=== PATIENT | male | born 1975 | race Caucasian/White ===

== ENCOUNTER 2018-08-15 15:08 | Emergency (ER) | payer BC ==
[2018-08-15] MEDS ORDERED: Sodium Chloride 0.9% 10 ML Syringe FLUSH PRN (15:25)
[2018-08-15] MEDS ORDERED: Albuterol/Ipratropium 3.0-0.5 MG/3 ML Neb Soln NEB ONE (15:26)
[2018-08-15] MEDS ORDERED: LORazepam 2 MG/ML SDV IVPUSH ONE (16:17)
--- NOTE | 2018-08-15 17:31 | EDM.PDOC ---
ED HPI GENERAL MEDICAL PROBLEM - General Chief Complaint: Chest Pain Stated Complaint: CHEST TIGHTNESS Time Seen by Provider: 08/15/18 15:16 Source of Information: Reports: Patient History Limitations: Reports: No Limitations - History of Present Illness INITIAL COMMENTS - FREE TEXT/NARRATIVE: The patient presents with chest tightness and shortness of breath. He noticed this today when he was at work. He went home and tried to lay down but that did not help. It feels like his throat is closing. He has no sore throat. He has no fever, chills, cough, abdominal, nausea and vomiting. He has no history of heart disease, diabetes or hypertension. He does have a history of anxiety and he weaned himself off of the medication. He does feel anxious now. Onset: Gradual Duration: Hour(s): Location: Reports: Chest Quality: Reports: Other (Tightness) Severity: Moderate Improves with: Reports: None Worsens with: Reports: None Associated Symptoms: Reports: Chest Pain, Shortness of Breath. Denies: Cough, Fever/Chills, Headaches, Nausea/Vomiting Chest Pain Score (Numeric/FACES): 7 - Related Data Allergies Allergy/AdvReac Type Severity Reaction Status Date / Time No Known Allergies Allergy Verified 08/15/18 15:20 Home Meds: Home Meds LORazepam [Ativan] 0.5 mg PO Q8H PRN #20 tab 08/15/18 [Rx] Past Medical History - Past Health History Medical/Surgical History: Denies Medical/Surgical History Psychiatric History: Reports: Anxiety, Depression Social & Family History - Family History Family Medical History: Noncontributory - Tobacco Use Smoking Status *Q: Current Every Day Smoker Years of Tobacco use: 15 Packs/Tins Daily: 0.2 - Caffeine Use Caffeine Use: Reports: Energy Drinks Other Caffeine Use: 1/day - Recreational Drug Use Recreational Drug Use: No ED ROS GENERAL - Review of Systems Review Of Systems: See Below Constitutional: Reports: No Symptoms HEENT: Reports: No Symptoms Respiratory: Reports: Shortness of Breath Cardiovascular: Reports: Chest Pain Endocrine: Reports: No Symptoms GI/Abdominal: Reports: No Symptoms : Reports: No Symptoms Musculoskeletal: Reports: No Symptoms ED EXAM, GENERAL - Physical Exam Exam: See Below Exam Limited By: No Limitations General Appearance: Alert, No Apparent Distress Ears: Normal External Exam Nose: Normal Inspection Throat/Mouth: Other (Mild erythema of the oropharynx) Head: Atraumatic, Normocephalic Neck: Normal Inspection Respiratory/Chest: No Respiratory Distress, Decreased Breath Sounds (Mild) Cardiovascular: Regular Rate, Rhythm, No Edema, No Murmur GI/Abdominal: Soft, Non-Tender, No Organomegaly, No Mass Back Exam: Normal Inspection Extremities: Normal Inspection Neurological: Alert, Oriented, No Motor/Sensory Deficits EKG INTERPRETATION EKG Date: 08/15/18 Time: 15:14 Rhythm: Other (Sinus tachycardia) Rate (Beats/Min): 100 [place]: Normal P-Wave: Present QRS: Normal ST-T: Elevated (Normal early repol) QT: Normal Course - Vital Signs Last Recorded V/S: Last Vital Signs Temp 98.2 F 08/15/18 15:16 Pulse 105 H 08/15/18 15:16 Resp 20 08/15/18 15:16 BP 190/116 H 08/15/18 15:16 Pulse Ox 99 08/15/18 15:33 - Orders/Labs/Meds Orders: Active Orders 24 hr Category Date Time Status Cardiac Monitoring [RC] . DIRECTED Care 08/15/18 15:25 Active EKG Documentation Completion [RC] STAT Care 08/15/18 15:26 Active Peripheral IV Care [RC] . DIRECTED Care 08/15/18 15:26 Active RT Aerosol Therapy [RC] ASDIRECTED Care 08/15/18 15:27 Active Chest 1V Frontal [CR] Stat Exams 08/15/18 15:26 Taken Sodium Chloride 0.9% [Saline Flush] Med 08/15/18 15:25 Active 10 ml FLUSH ASDIRECTED PRN Peripheral IV Insertion Adult [OM.PC] Stat Oth 08/15/18 15:25 Ordered Medication Orders Sodium Chloride (Saline Flush) 10 ml FLUSH ASDIRECTED PRN PRN Reason: Keep Vein Open Last Admin: 08/15/18 15:35 Dose: 10 ml Labs: Laboratory Tests 08/15/18 08/15/18 08/15/18 Range/Units 15:22 15:22 15:22 WBC 18.46 H (4.23-9.07) K/mm3 RBC 5.04 (4.63-6.08) M/mm3 Hgb 15.7 (13.7-17.5) gm/L Hct 47.1 (40.1-51.0) % MCV 93.5 H (79.0-92.2) fl MCH 31.2 (25.7-32.2) pg MCHC 33.3 (32.2-35.5) g/dl RDW Std Deviation 50.2 H (35.1-43.9) fL Plt Count 450 H (163-337) K/mm3 MPV 8.9 L (9.4-12.3) fl Neut % (Auto) 82.7 H (34.0-67.9) % Lymph % (Auto) 10.2 L (21.8-53.1) % [place] % (Auto) 6.0 (5.3-12.2) % Eos % (Auto) 0.4 L (0.8-7.0) Baso % (Auto) 0.3 (0.1-1.2) % Neut # (Auto) 15.29 H (1.78-5.38) K/mm3 Lymph # (Auto) 1.88 (1.32-3.57) K/mm3 [place] # (Auto) 1.10 H (0.30-0.82) K/mm3 Eos # (Auto) 0.07 (0.04-0.54) K/mm3 Baso # (Auto) 0.05 (0.01-0.08) K/mm3 Sodium 135 L (136-145) mEq/L Potassium 3.4 L (3.5-5.1) mEq/L Chloride 101 (98-107) mEq/L Carbon Dioxide 25 (21-32) mEq/L Anion Gap 12.4 (5-15) BUN 9 (7-18) mg/dL Creatinine 1.1 (0.7-1.3) mg/dL Est Cr Clr Drug Dosing 94.13 mL/min Estimated GFR (MDRD) > 60 (>60) mL/min BUN/Creatinine Ratio 8.2 L (14-18) Glucose 103 (74-106) mg/dL Calcium 8.7 (8.5-10.1) mg/dL Total Bilirubin 0.4 (0.2-1.0) mg/dL AST 24 (15-37) U/L ALT 26 (16-63) U/L Alkaline Phosphatase 107 (46-116) U/L Troponin I < 0.017 (0.00-0.056) ng/mL Total Protein 7.3 (6.4-8.2) g/dl Albumin 3.5 (3.4-5.0) g/dl Globulin 3.8 gm/dL Albumin/Globulin Ratio 0.9 L (1-2) Ethyl Alcohol 0.00 (0.00) gm% Meds: Medications Generic Name Dose Route Start Last Admin Trade Name Freq PRN Reason Stop Dose Admin Sodium Chloride 10 ml 08/15/18 15:25 08/15/18 15:35 Saline Flush FLUSH 10 ml ASDIRECTED PRN Administration Keep Vein Open Discontinued Medications Generic Name Dose Route Start Last Admin Trade Name Freq PRN Reason Stop Dose Admin Albuterol/Ipratropium 3 ml 08/15/18 15:26 08/15/18 15:33 Duoneb 3.0-0.5 Mg/3 Ml NEB 08/15/18 15:27 3 ml ONETIME ONE Administration Lorazepam 1 mg 08/15/18 16:17 08/15/18 16:22 Ativan IVPUSH 08/15/18 16:18 1 mg ONETIME ONE Administration - Re-Assessments/Exams Free Text/Narrative Re-Assessment/Exam: 08/15/18 17:31 I ordered an IV saline lock, EKG, labs, CXR and a throat culture. His EKG shows a sinus tachycardia. His CXR looks good. His WBC is elevated at 18.46. His CMP is normal. His troponin was negative. He had more anxiety and he felt like his throat was closing. I ordered ativan and he feels much better. I will discharge him home. Departure - Departure Time of Disposition: 17:35 Disposition: Home, Self-Care 01 Condition: Good Clinical Impression: Atypical chest pain, Anxiety Prescriptions: LORazepam [Ativan] 0.5 mg PO Q8H PRN #20 tab PRN Reason: Anxiety Referrals: PCP,None [Primary Care Provider] - Cristiano Molina PA-C [Physician [facility] [employer]] - 1 Week Additional Instructions: Take the ativan as needed for anxiety. Please return if you are worse. - My Orders Last 24 Hours: My Active Orders 08/15/18 15:25 Cardiac Monitoring [RC] . DIRECTED Sodium Chloride 0.9% [Saline Flush] 10 ml FLUSH ASDIRECTED PRN Peripheral IV Insertion Adult [OM.PC] Stat 08/15/18 15:26 EKG Documentation Completion [RC] STAT Peripheral IV Care [RC] . DIRECTED Chest 1V Frontal [CR] Stat 08/15/18 15:27 RT Aerosol Therapy [RC] ASDIRECTED - Assessment/Plan Last 24 Hours: My Active Orders 08/15/18 15:25 Cardiac Monitoring [RC] . DIRECTED Sodium Chloride 0.9% [Saline Flush] 10 ml FLUSH ASDIRECTED PRN Peripheral IV Insertion Adult [OM.PC] Stat 08/15/18 15:26 EKG Documentation Completion [RC] STAT Peripheral IV Care [RC] . DIRECTED Chest 1V Frontal [CR] Stat 08/15/18 15:27 RT Aerosol Therapy [RC] ASDIRECTED
--- NOTE | 2018-08-17 07:14 | CR ---
Chest: Portable view of the chest was obtained. Comparison: No prior chest x-ray. Heart size and mediastinum are normal. Lungs are clear. Bony structures are unremarkable. Impression: 1. Nothing acute is seen on portable chest x-ray. Diagnostic code #1
== END 2018-08-15 18:00 | disposition home or self-care (01) ==
LOC: JD.ED 15:08
DX: F41.9 Anxiety disorder, unspecified (principal); F32.9 Major depressive disorder, single episode, unspecified; F17.210 Nicotine dependence, cigarettes, uncomplicated
CPT/HCPCS: 36415; 71045; 80053; 84484; 85025; 93005; 94640; 96374; 99285; G0480; J2060; J7050; J7620-GY

== ENCOUNTER 2019-01-20 18:25 | Emergency (ER) | payer BC ==
[2019-01-20] MEDS ORDERED: Labetalol 100 MG/20 ML MDV IVPUSH ONE ×2 (19:08→20:47)
[2019-01-20] MEDS ORDERED: Sodium Chloride 0.9% 10 ML Syringe FLUSH PRN (19:09)
[2019-01-20] MEDS ORDERED: Lisinopril 10 MG Tab PO ONE (20:48)
--- NOTE | 2019-01-20 21:22 | EDM.PDOC ---
ED HPI GENERAL MEDICAL PROBLEM - General Chief Complaint: Chest Pain Stated Complaint: CHEST TIGHTNESS Time Seen by Provider: 01/20/19 18:57 Source of Information: Reports: Patient, RN Notes Reviewed - History of Present Illness INITIAL COMMENTS - FREE TEXT/NARRATIVE: 43-year-old male comes in with sensation of pounding type palpitations. States he also has mild nonspecific dizziness. States he is under a lot of stress right now, having severe arguments with his girlfriend. States he has a "funny taste" in his mouth. Is concerned that maybe she put something in his food. History of borderline hypertension. He does not currently take any medication for that or for anything else. No shortness of breath or trouble breathing. No abdominal pain nausea or vomiting. - Related Data Allergies Allergy/AdvReac Type Severity Reaction Status Date / Time No Known Allergies Allergy Verified 01/20/19 18:35 Home Meds: Home Meds Esomeprazole Magnesium [Nexium 24Hr] 20 mg PO ASDIRECTED PRN 01/20/19 [History] Lisinopril 10 mg PO DAILY #30 tablet 01/20/19 [Rx] Past Medical History - Past Health History Medical/Surgical History: Denies Medical/Surgical History HEENT History: Reports: Impaired Vision Other HEENT History: wears contacts. Cardiovascular History: Reports: Hypertension, Other (See Below) Other Cardiovascular History: takes no meds. Gastrointestinal History: Reports: GERD, PUD Psychiatric History: Reports: Anxiety, Depression Dermatologic History: Reports: Other (See Below) Other Dermatologic History: undiagnosed chronic rash to back. - Past Surgical History HEENT Surgical History: Reports: Other (See Below) Other HEENT Surgeries/Procedures: wisdom teeth removed. GI Surgical History: Reports: Colonoscopy, EGD Social & Family History - Family History Family Medical History: Noncontributory - Tobacco Use Smoking Status *Q: Current Every Day Smoker Years of Tobacco use: 10 Packs/Tins Daily: 0.5 Second Hand Smoke Exposure: Yes - Caffeine Use Caffeine Use: Reports: Energy Drinks Other Caffeine Use: 1/day - Alcohol Use Days Per Week of Alcohol Use: 4 Number of Drinks Per Day: 8 Total Drinks Per Week: 32 - Recreational Drug Use Recreational Drug Use: No ED ROS GENERAL - Review of Systems Review Of Systems: See Below Constitutional: Denies: Fever, Chills, Diaphoresis HEENT: Denies: Sinus Problem, Throat Pain Respiratory: Denies: Shortness of Breath, Pleuritic Chest Pain Cardiovascular: Reports: Palpitations. Denies: Chest Pain GI/Abdominal: Denies: Abdominal Pain, Nausea, Vomiting Musculoskeletal: Denies: Shoulder Pain, Arm Pain, Back Pain Skin: Reports: No Symptoms Neurological: Reports: Dizziness. Denies: Headache, Numbness, Tingling, Trouble Speaking, Difficulty Walking, Weakness ED EXAM, GENERAL - Physical Exam Exam: See Below General Appearance: Alert, Anxious Eye Exam: Bilateral Eye: PERRL Throat/Mouth: Normal Inspection, Normal Oropharynx Head: Atraumatic. No: Facial Swelling Neck: Supple, Full Range of Motion Respiratory/Chest: No Respiratory Distress, Lungs Clear, Normal Breath Sounds Cardiovascular: Regular Rate, Rhythm GI/Abdominal: Soft, Non-Tender. No: Guarding Back Exam: No: CVA Tenderness (L), CVA Tenderness (R) Extremities: Normal Inspection, No Pedal Edema Neurological: Alert, Oriented, No Motor/Sensory Deficits Skin Exam: Warm, Dry, Normal Color, No Rash EKG INTERPRETATION EKG Date: 01/20/19 Rhythm: NSR [place]: Normal P-Wave: Present QRS: Normal ST-T: Other (Anterior ST elevation, probably due to LVH) Course - Vital Signs Last Recorded V/S: Last Vital Signs Temp 98.7 F 01/20/19 18:30 Pulse 94 01/20/19 18:30 Resp 16 01/20/19 18:30 BP 150/97 H 01/20/19 21:03 Pulse Ox 96 01/20/19 18:30 - Orders/Labs/Meds Orders: Active Orders 24 hr Category Date Time Status EKG 12 Lead [EKG Documentation Completion] [RC] STAT Care 01/20/19 19:07 Active Peripheral IV Care [RC] . DIRECTED Care 01/20/19 19:09 Active Chest 1V Frontal [CR] Stat Exams 01/20/19 19:07 Taken Peripheral IV Insertion Adult [OM.PC] Stat Oth 01/20/19 19:08 Ordered Labs: Laboratory Tests 01/20/19 01/20/19 01/20/19 Range/Units 18:55 18:55 19:09 WBC 11.85 H (4.23-9.07) K/mm3 RBC 5.05 (4.63-6.08) M/mm3 Hgb 15.6 (13.7-17.5) gm/L Hct 47.2 (40.1-51.0) % MCV 93.5 H (79.0-92.2) fl MCH 30.9 (25.7-32.2) pg MCHC 33.1 (32.2-35.5) g/dl RDW Std Deviation 47.7 H (35.1-43.9) fL Plt Count 486 H (163-337) K/mm3 MPV 8.5 L (9.4-12.3) fl Neut % (Auto) 66.0 (34.0-67.9) % Lymph % (Auto) 23.5 (21.8-53.1) % [place] % (Auto) 8.3 (5.3-12.2) % Eos % (Auto) 1.2 (0.8-7.0) Baso % (Auto) 0.7 (0.1-1.2) % Neut # (Auto) 7.82 H (1.78-5.38) K/mm3 Lymph # (Auto) 2.79 (1.32-3.57) K/mm3 [place] # (Auto) 0.98 H (0.30-0.82) K/mm3 Eos # (Auto) 0.14 (0.04-0.54) K/mm3 Baso # (Auto) 0.08 (0.01-0.08) K/mm3 Sodium 140 (136-145) mEq/L Potassium 3.5 (3.5-5.1) mEq/L Chloride 105 (98-107) mEq/L Carbon Dioxide 27 (21-32) mEq/L Anion Gap 11.5 (5-15) BUN 12 (7-18) mg/dL Creatinine 1.1 (0.7-1.3) mg/dL Est Cr Clr Drug Dosing 93.17 mL/min Estimated GFR (MDRD) > 60 (>60) mL/min BUN/Creatinine Ratio 10.9 L (14-18) Glucose 105 (74-106) mg/dL Calcium 9.1 (8.5-10.1) mg/dL Total Bilirubin 0.2 (0.2-1.0) mg/dL AST 18 (15-37) U/L ALT 27 (16-63) U/L Alkaline Phosphatase 88 (46-116) U/L Troponin I < 0.017 (0.00-0.056) ng/mL Total Protein 7.4 (6.4-8.2) g/dl Albumin 3.5 (3.4-5.0) g/dl Globulin 3.9 gm/dL Albumin/Globulin Ratio 0.9 L (1-2) Urine Color Yellow (Yellow) Urine Appearance Slt cloudy H (Clear) Urine pH 7.0 (5.0-8.0) Ur Specific [place] 1.025 (1.005-1.030) Urine Protein 1+ H (Negative) Urine Glucose (UA) Negative (Negative) Urine Ketones 2+ H (Negative) Urine Occult Blood Negative (Negative) Urine Nitrite Negative (Negative) Urine Bilirubin 1+ H (Negative) Urine Urobilinogen 2.0 H (0.2-1.0) Ur Leukocyte Esterase Negative (Negative) Urine RBC 0-5 (0-5) /hpf Urine WBC 0-5 (0-5) /hpf Ur Epithelial Cells 0-5 (0-5) /hpf Urine Bacteria Moderate H (FEW) /hpf Urine Mucus Many H (FEW) /hpf Urine Opiates Screen (TNYAKS=982) Ur Buprenorphine Scrn (CUTOFF=10) Ur Oxycodone Screen (FRT7CU=984) Urine Methadone Screen (KKX1PH=805) Ur Propoxyphene Screen (YVMNWO=315) Ur Barbiturates Screen (HKXBHT=604) Ur Tricyclics Screen (ZGKSKO=685) Ur Phencyclidine Scrn (CUTOFF=25) Ur Amphetamine Screen (IILBGD=361) U Methamphetamines Scrn (XLQYJY=206) U Benzodiazepines Scrn (WULFRG=442) U Cocaine Metab Screen (JXWTLM=748) U Marijuana (THC) Screen (CUTOFF=50) 01/20/19 Range/Units 19:09 WBC (4.23-9.07) K/mm3 RBC (4.63-6.08) M/mm3 Hgb (13.7-17.5) gm/L Hct (40.1-51.0) % MCV (79.0-92.2) fl MCH (25.7-32.2) pg MCHC (32.2-35.5) g/dl RDW Std Deviation (35.1-43.9) fL Plt Count (163-337) K/mm3 MPV (9.4-12.3) fl Neut % (Auto) (34.0-67.9) % Lymph % (Auto) (21.8-53.1) % [place] % (Auto) (5.3-12.2) % Eos % (Auto) (0.8-7.0) Baso % (Auto) (0.1-1.2) % Neut # (Auto) (1.78-5.38) K/mm3 Lymph # (Auto) (1.32-3.57) K/mm3 [place] # (Auto) (0.30-0.82) K/mm3 Eos # (Auto) (0.04-0.54) K/mm3 Baso # (Auto) (0.01-0.08) K/mm3 Sodium (136-145) mEq/L Potassium (3.5-5.1) mEq/L Chloride (98-107) mEq/L Carbon Dioxide (21-32) mEq/L Anion Gap (5-15) BUN (7-18) mg/dL Creatinine (0.7-1.3) mg/dL Est Cr Clr Drug Dosing mL/min Estimated GFR (MDRD) (>60) mL/min BUN/Creatinine Ratio (14-18) Glucose (74-106) mg/dL Calcium (8.5-10.1) mg/dL Total Bilirubin (0.2-1.0) mg/dL AST (15-37) U/L ALT (16-63) U/L Alkaline Phosphatase (46-116) U/L Troponin I (0.00-0.056) ng/mL Total Protein (6.4-8.2) g/dl Albumin (3.4-5.0) g/dl Globulin gm/dL Albumin/Globulin Ratio (1-2) Urine Color (Yellow) Urine Appearance (Clear) Urine pH (5.0-8.0) Ur Specific [place] (1.005-1.030) Urine Protein (Negative) Urine Glucose (UA) (Negative) Urine Ketones (Negative) Urine Occult Blood (Negative) Urine Nitrite (Negative) Urine Bilirubin (Negative) Urine Urobilinogen (0.2-1.0) Ur Leukocyte Esterase (Negative) Urine RBC (0-5) /hpf Urine WBC (0-5) /hpf Ur Epithelial Cells (0-5) /hpf Urine Bacteria (FEW) /hpf Urine Mucus (FEW) /hpf Urine Opiates Screen Negative (UUNVNH=815) Ur Buprenorphine Scrn Negative (CUTOFF=10) Ur Oxycodone Screen Negative (BFO7DT=638) Urine Methadone Screen Negative (RCE0CG=006) Ur Propoxyphene Screen Negative (XYZEEZ=775) Ur Barbiturates Screen Negative (DMDIYX=713) Ur Tricyclics Screen Negative (NDFUIX=867) Ur Phencyclidine Scrn Negative (CUTOFF=25) Ur Amphetamine Screen Negative (GVWEEJ=928) U Methamphetamines Scrn Negative (WTYNFH=866) U Benzodiazepines Scrn Negative (HIZEAJ=978) U Cocaine Metab Screen Negative (JFYRME=462) U Marijuana (THC) Screen Negative (CUTOFF=50) Meds: Medications Discontinued Medications Generic Name Dose Route Start Last Admin Trade Name Freq PRN Reason Stop Dose Admin Labetalol HCl 20 mg 01/20/19 19:08 01/20/19 19:20 Normodyne IVPUSH 01/20/19 19:09 20 mg ONETIME ONE Administration Protocol Labetalol HCl 20 mg 01/20/19 20:47 01/20/19 20:56 Normodyne IVPUSH 01/20/19 20:48 20 mg ONETIME ONE Administration Protocol Lisinopril 10 mg 01/20/19 20:48 01/20/19 21:03 Prinivil PO 01/20/19 20:49 10 mg ONETIME ONE Administration Sodium Chloride 10 ml 01/20/19 19:09 01/20/19 19:20 Saline Flush FLUSH 10 ml ASDIRECTED PRN Administration Keep Vein Open - Re-Assessments/Exams Free Text/Narrative Re-Assessment/Exam: 01/21/19 05:37 Labs are as documented, a pressure did come down well with 2 doses of labetalol 20 mg IV apart. He was feeling tremendously better after getting his blood pressure down. Of note it was quite high on arrival in the 200/120 range. We did also give him a dose of lisinopril prior to discharge. I did prescribe lisinopril 10 mg daily as a starting treatment for his hypertension. Discharge instructions as documented. Departure - Departure Time of Disposition: 21:17 Disposition: Home, Self-Care 01 Condition: Fair Clinical Impression: Hypertension Qualifiers: Hypertension type: essential hypertension Qualified Code(s): I10 - Essential ( primary) hypertension Prescriptions: Lisinopril 10 mg PO DAILY #30 tablet Instructions: Hypertension, [id number] Referrals: PCPJerald [Primary Care Provider] - Forms: ED Department Discharge Additional Instructions: try reduce your caffeine intake, avoid salty food as best you can, begin lisinopril 10 mg daily for treatment of hypertension. Get an electronic BP unit and try check you BP once or twice daily, keep a record of those readings. See a provider at our [facility] for a complete medical physical, bring a list of those reading with you for that appointment. Call [phone] for appt. Return to ED as needed. - My Orders Last 24 Hours: My Active Orders 01/20/19 19:07 EKG 12 Lead [EKG Documentation Completion] [RC] STAT Chest 1V Frontal [CR] Stat 01/20/19 19:08 Peripheral IV Insertion Adult [OM.PC] Stat 01/20/19 19:09 Peripheral IV Care [RC] . DIRECTED - Assessment/Plan Last 24 Hours: My Active Orders 01/20/19 19:07 EKG 12 Lead [EKG Documentation Completion] [RC] STAT Chest 1V Frontal [CR] Stat 01/20/19 19:08 Peripheral IV Insertion Adult [OM.PC] Stat 01/20/19 19:09 Peripheral IV Care [RC] . DIRECTED
--- NOTE | 2019-01-21 06:17 | CR ---
Chest: Portable view of the chest was obtained. Comparison: Prior chest x-ray of 08/15/18. Heart size and mediastinum are within normal limits for portable technique. Lungs are clear with no acute parenchymal change. Bony structures are grossly intact. Impression: 1. Nothing acute is appreciated on portable chest x-ray. Diagnostic code #1
== END 2019-01-20 21:34 | disposition home or self-care (01) ==
LOC: JD.ED 18:25
DX: I10 Essential (primary) hypertension (principal); F17.210 Nicotine dependence, cigarettes, uncomplicated; G21.9 Secondary parkinsonism, unspecified; F41.9 Anxiety disorder, unspecified; F32.9 Major depressive disorder, single episode, unspecified; Z79.899 Other long term (current) drug therapy
CPT/HCPCS: 36415; 71045; 80053; 80306; 81001; 84484; 85025; 93005; 96374; 96376; 99285; A9270; J3490; 93010; 99284

== ENCOUNTER 2020-10-10 16:16 | Emergency (ER) | payer BC ==
[2020-10-10] MEDS ORDERED: Sodium Chloride 0.9% 10 ML Syringe FLUSH PRN (16:33)
--- NOTE | 2020-10-10 16:42 | EDM.PDOC ---
ED HPI GENERAL MEDICAL PROBLEM - General Chief Complaint: Cardiovascular Problem Stated Complaint: IRREGULAR HEART BEAT Time Seen by Provider: 10/10/20 16:25 Source of Information: Reports: Patient, RN Notes Reviewed History Limitations: Reports: No Limitations - History of Present Illness INITIAL COMMENTS - FREE TEXT/NARRATIVE: Patient is a 45-year-old male who presents to the ED for his irregular heartbeat. Patient notes for the last 2 or 3 days, he feels like his heart has been beating out of his chest. He notes that it is beating extremely hard, he notes this to be somewhat of a palpitation type feeling. He states that he coughs, and can get it to stop. He does note that he has had increased anxiety as well, and he is not really sure if it has been related to that. He states that he has never had these feelings before ever. He is complaining of a slight chest burning sensation but no chest pain, no nausea, vomiting, cough, shortness of breath, fevers, chills. He states he drinks 1 energy drink early in the morning for work, he takes no drugs, he is an occasional drinker and drinks about a 12 pack of beer on a weekly basis. He states that he smokes off and on. Has a history of hypertension and cholesterol issues, but has no primary care provider. States he has seen a woman provider at [facility] in the past but cannot remember her name. - Related Data Allergies Allergy/AdvReac Type Severity Reaction Status Date / Time No Known Allergies Allergy Verified 10/10/20 16:25 Home Meds: Home Meds Esomeprazole Magnesium [Nexium 24Hr] 20 mg PO ASDIRECTED PRN 01/20/19 [History] Lisinopril 10 mg PO DAILY #30 tablet 01/20/19 [Rx] Escitalopram [Lexapro] 20 mg PO DAILY #30 tab 10/10/20 [Rx] LORazepam [Ativan] 1 mg PO TID PRN #20 tab 10/10/20 [Rx] Past Medical History HEENT History: Reports: Impaired Vision Other HEENT History: wears contacts. Cardiovascular History: Reports: High Cholesterol, Hypertension Other Cardiovascular History: takes no meds. Gastrointestinal History: Reports: GERD, PUD Psychiatric History: Reports: Anxiety, Depression Dermatologic History: Reports: Other (See Below) Other Dermatologic History: undiagnosed chronic rash to back. - Past Surgical History HEENT Surgical History: Reports: Oral Surgery Other HEENT Surgeries/Procedures: wisdom teeth removed. GI Surgical History: Reports: Colonoscopy, EGD Social & Family History - Family History Family Medical History: No Pertinent Family History - Tobacco Use Tobacco Use Status *Q: Current Some Day Tobacco User Years of Tobacco use: 20 Packs/Tins Daily: 0.2 - Caffeine Use Caffeine Use: Reports: Energy Drinks Other Caffeine Use: 1/day - Recreational Drug Use Recreational Drug Use: No ED ROS GENERAL - Review of Systems Review Of Systems: Comprehensive ROS is negative, except as noted in HPI. ED EXAM, GENERAL - Physical Exam Exam: See Below Exam Limited By: No Limitations General Appearance: Alert, WD/WN, No Apparent Distress, Anxious Respiratory/Chest: No Respiratory Distress, Lungs Clear, Normal Breath Sounds, No Accessory Muscle Use, Chest Non-Tender Cardiovascular: Normal Peripheral Pulses, Regular Rate, Rhythm, No Murmur Peripheral Pulses: 2+: Radial (L), Radial (R) Extremities: Normal Inspection, Normal Capillary Refill Neurological: Alert, Oriented, Normal Cognition, No Motor/Sensory Deficits Psychiatric: Normal Affect, Normal Mood Skin Exam: Warm, Dry, Intact, Normal Color, No Rash #1 Interpretation EKG Date: 10/10/20 Time: 16:32 Rhythm: NSR Rate (Beats/Min): 73 [place]: Normal P-Wave: Present QRS: Normal ST-T: Normal QT: Normal Comparison: No Change (as compared from 12/2018) EKG Interpretation Comments: No obvious ischemia or acute ST changes noted, reviewed by myself and Dr. Gilbert. Course - Vital Signs Last Recorded V/S: Last Vital Signs Temp 97.6 F 10/10/20 16:22 Pulse 77 10/10/20 16:22 Resp 16 10/10/20 16:22 BP 153/95 H 10/10/20 16:22 Pulse Ox 99 10/10/20 16:22 - Orders/Labs/Meds Orders: Active Orders 24 hr Category Date Time Status EKG Documentation Completion [RC] STAT Care 10/10/20 16:33 Active Peripheral IV Care [RC] . DIRECTED Care 10/10/20 16:33 Active Sodium Chloride 0.9% [Saline Flush] Med 10/10/20 16:33 Active 10 ml FLUSH ASDIRECTED PRN Peripheral IV Insertion Adult [OM.PC] Stat Oth 10/10/20 16:33 Ordered Medication Orders Sodium Chloride (Saline Flush) 10 ml FLUSH ASDIRECTED PRN PRN Reason: Keep Vein Open Last Admin: 10/10/20 17:08 Dose: 10 ml Documented by: GENESIS Labs: Laboratory Tests 10/10/20 10/10/20 10/10/20 Range/Units 16:52 16:52 16:52 WBC 10.37 H (4.23-9.07) K/mm3 RBC 4.52 L (4.63-6.08) M/mm3 Hgb 14.1 D (13.7-17.5) gm/dl Hct 41.8 (40.1-51.0) % MCV 92.5 H (79.0-92.2) fl MCH 31.2 (25.7-32.2) pg MCHC 33.7 (32.2-35.5) g/dl RDW Std Deviation 44.3 H (35.1-43.9) fL Plt Count 427 H (163-337) K/mm3 MPV 8.7 L (9.4-12.3) fl Neut % (Auto) 71.8 H (34.0-67.9) % Lymph % (Auto) 21.7 L (21.8-53.1) % [place] % (Auto) 5.3 (5.3-12.2) % Eos % (Auto) 0.7 L (0.8-7.0) Baso % (Auto) 0.3 (0.1-1.2) % Neut # (Auto) 7.45 H (1.78-5.38) K/mm3 Lymph # (Auto) 2.25 (1.32-3.57) K/mm3 [place] # (Auto) 0.55 (0.30-0.82) K/mm3 Eos # (Auto) 0.07 (0.04-0.54) K/mm3 Baso # (Auto) 0.03 (0.01-0.08) K/mm3 Manual Slide Review Normal smear PT 11.3 (9.7-12.0) SECONDS INR 1.06 APTT 30.7 (21.7-31.4) SECONDS Sodium 137 (136-145) mEq/L Potassium 3.8 (3.5-5.1) mEq/L Chloride 102 (98-107) mEq/L Carbon Dioxide 25 (21-32) mEq/L Anion Gap 13.8 (5-15) BUN 9 (7-18) mg/dL Creatinine 1.0 (0.7-1.3) mg/dL Est Cr Clr Drug Dosing 100.40 mL/min Estimated GFR (MDRD) > 60 (>60) mL/min BUN/Creatinine Ratio 9.0 L (14-18) Glucose 104 (74-106) mg/dL Calcium 9.3 (8.5-10.1) mg/dL Magnesium 1.7 L (1.8-2.4) mg/dl Total Bilirubin 0.4 (0.2-1.0) mg/dL AST 20 (15-37) U/L ALT 36 (16-63) U/L Alkaline Phosphatase 91 (46-116) U/L Troponin I < 0.017 (0.00-0.056) ng/mL NT-Pro-B Natriuret Pep (0-125) pg/mL Total Protein 7.6 (6.4-8.2) g/dl Albumin 4.2 (3.4-5.0) g/dl Globulin 3.4 gm/dL Albumin/Globulin Ratio 1.2 (1-2) TSH 3rd Generation 0.968 (0.358-3.74) uIU/mL 10/10/20 Range/Units 16:52 WBC (4.23-9.07) K/mm3 RBC (4.63-6.08) M/mm3 Hgb (13.7-17.5) gm/dl Hct (40.1-51.0) % MCV (79.0-92.2) fl MCH (25.7-32.2) pg MCHC (32.2-35.5) g/dl RDW Std Deviation (35.1-43.9) fL Plt Count (163-337) K/mm3 MPV (9.4-12.3) fl Neut % (Auto) (34.0-67.9) % Lymph % (Auto) (21.8-53.1) % [place] % (Auto) (5.3-12.2) % Eos % (Auto) (0.8-7.0) Baso % (Auto) (0.1-1.2) % Neut # (Auto) (1.78-5.38) K/mm3 Lymph # (Auto) (1.32-3.57) K/mm3 [place] # (Auto) (0.30-0.82) K/mm3 Eos # (Auto) (0.04-0.54) K/mm3 Baso # (Auto) (0.01-0.08) K/mm3 Manual Slide Review PT (9.7-12.0) SECONDS INR APTT (21.7-31.4) SECONDS Sodium (136-145) mEq/L Potassium (3.5-5.1) mEq/L Chloride (98-107) mEq/L Carbon Dioxide (21-32) mEq/L Anion Gap (5-15) BUN (7-18) mg/dL Creatinine (0.7-1.3) mg/dL Est Cr Clr Drug Dosing mL/min Estimated GFR (MDRD) (>60) mL/min BUN/Creatinine Ratio (14-18) Glucose (74-106) mg/dL Calcium (8.5-10.1) mg/dL Magnesium (1.8-2.4) mg/dl Total Bilirubin (0.2-1.0) mg/dL AST (15-37) U/L ALT (16-63) U/L Alkaline Phosphatase (46-116) U/L Troponin I (0.00-0.056) ng/mL NT-Pro-B Natriuret Pep 16 (0-125) pg/mL Total Protein (6.4-8.2) g/dl Albumin (3.4-5.0) g/dl Globulin gm/dL Albumin/Globulin Ratio (1-2) TSH 3rd Generation (0.358-3.74) uIU/mL Meds: Medications Generic Name Dose Route Start Last Admin Trade Name Freq PRN Reason Stop Dose Admin Sodium Chloride 10 ml 10/10/20 16:33 10/10/20 17:08 Saline Flush FLUSH 10 ml ASDIRECTED PRN Administration Keep Vein Open Discontinued Medications Generic Name Dose Route Start Last Admin Trade Name Freq PRN Reason Stop Dose Admin Lorazepam 1 mg 10/10/20 16:58 10/10/20 17:08 Ativan IVPUSH 10/10/20 16:59 1 mg ONETIME ONE Administration - Re-Assessments/Exams Free Text/Narrative Re-Assessment/Exam: 10/10/20 16:40 Patient presents to the ED for evaluation of his palpitations in his chest. EKG shows no discernible ST change or ischemic-like changes. We will get basic labs and possibly send him home with a Holter monitor and have him follow-up with a provider at the [facility]. 10/10/20 17:58 The patient states he did get some relief from Ativan given today. He notes that he has a component of anxiety. He would like to try this route rather than a Holter monitor as he is cognizant that it might not show anything and he notes that most of this will likely just wrap turner to be anxiety. Labs are unremarkable. I will start him on escitalopram 20 mg daily, and give him a few tablets of Ativan to bridge his anxiety at this time. Departure - Departure Time of Disposition: 17:59 Disposition: Home, Self-Care 01 Condition: Good Clinical Impression: Anxiety, Palpitations Prescriptions: LORazepam [Ativan] 1 mg PO TID PRN #20 tab PRN Reason: Anxiety Escitalopram [Lexapro] 20 mg PO DAILY #30 tab Instructions: Palpitations, [id number], Managing Anxiety, Adult Referrals: PCP,None [Primary Care Provider] - Forms: ED Department Discharge Additional Instructions: You were evaluated in the ER today for the feelings of your heart palpitations. Your EKG demonstrated no acute abnormalities, and your laboratory evaluation was unremarkable. You did receive pretty good relief with the 1 mg Ativan given to you today for your anxiety. You have been given a prescription for this, please take 1 tablet 2-3 times a day as needed for further anxiety symptoms, I would recommend that you use this only in times where you are having extreme anxiety. Do not drive while taking this medication. You have also been started on a long-term anxiety solution, the medication will be escitalopram 1 tablet daily. This medicine should be taken with food. You have been given a 30-day supply of this. This medication may take up to 4 to 6 weeks before you start seeing true benefit. You will need to follow-up with your primary care provider, our clinic number [phone], the [facility] clinic number is [phone]. Any family practice provider would be able to provide you with the services. Please do so as soon as possible, for clinical follow-up and for continuation of medications. Please return to the ER at any time if symptoms change or worsen. Sepsis Event Note (ED) - Evaluation Sepsis Screening Result: No Definite Risk - Focused Exam Vital Signs: Vital Signs Temp Pulse Resp BP Pulse Ox 10/10/20 16:22 97.6 F 77 16 153/95 H 99 - My Orders Last 24 Hours: My Active Orders 10/10/20 16:33 EKG Documentation Completion [RC] STAT Peripheral IV Care [RC] . DIRECTED Sodium Chloride 0.9% [Saline Flush] 10 ml FLUSH ASDIRECTED PRN Peripheral IV Insertion Adult [OM.PC] Stat - Assessment/Plan Last 24 Hours: My Active Orders 10/10/20 16:33 EKG Documentation Completion [RC] STAT Peripheral IV Care [RC] . DIRECTED Sodium Chloride 0.9% [Saline Flush] 10 ml FLUSH ASDIRECTED PRN Peripheral IV Insertion Adult [OM.PC] Stat
--- NOTE | 2020-10-10 16:52 | CR ---
PROCEDURE INFORMATION: Exam: XR Chest, 1 View Exam date and time: 10/10/2020 4:19 PM Age: 45 years old Clinical indication: Chest pain TECHNIQUE: Imaging protocol: XR of the chest Views: 1 view. COMPARISON: OT Chest 1V Frontal 01/20/2019 7:25 PM FINDINGS: Lungs: Unremarkable. No consolidation. Pleural space: Unremarkable. No pleural effusion. No pneumothorax. Heart/Mediastinum: Unremarkable. No cardiomegaly. Bones/joints: Unremarkable. IMPRESSION: No acute findings. Thank you for allowing us to participate in the care of your patient. Dictated and Authenticated by: Ronn White MD 10/10/2020 5:51 PM Central Time ([place] & [place]) MTDBrinda
[2020-10-10] MEDS ORDERED: LORazepam 2 MG/ML SDV IVPUSH ONE (16:58)
== END 2020-10-10 18:45 | disposition home or self-care (01) ==
LOC: JD.ED 16:16
DX: F41.9 Anxiety disorder, unspecified (principal); I10 Essential (primary) hypertension; K21.9 Gastro-esophageal reflux disease without esophagitis; F32.9 Major depressive disorder, single episode, unspecified; F17.210 Nicotine dependence, cigarettes, uncomplicated; Z79.899 Other long term (current) drug therapy
CPT/HCPCS: 36415; 71045; 80053; 83735; 83880; 84443; 84484; 85025; 85610; 85730; 93005; 96374; 99285; J2060; 93010; 99284

== ENCOUNTER 2021-08-21 20:14 | Emergency (ER) | payer BC ==
[2021-08-21] MEDS ORDERED: LORazepam 1 MG Tab PO ONE (20:35)
--- NOTE | 2021-08-21 20:47 | EDM.PDOC ---
ED HPI GENERAL MEDICAL PROBLEM - General Chief Complaint: Chest Pain Stated Complaint: CHEST PAIN Time Seen by Provider: 08/21/21 20:31 Source of Information: Reports: Patient, RN Notes Reviewed History Limitations: Reports: No Limitations - History of Present Illness INITIAL COMMENTS - FREE TEXT/NARRATIVE: Patient is a 45-year-old male presenting to the emergency department with complaints of midsternal chest pain radiating through to his back since this morning. He reports he has had pain similar to this in the past and been evaluated and treated for anxiety. He reports that he does feel like he is having a panic attack. Still quite anxious throughout the day. He had previously been taking venlafaxine, as well as a number of other medications, however he reports he stopped it 2 weeks ago "because he is stubborn ". He feels this is likely why he is having a panic attack again. Denies any shortness of breath, dizziness, palpitations, or diaphoresis. He has no significant cardiac history. Middle Chest Pain Score (Numeric/FACES): 3 - Related Data Allergies Allergy/AdvReac Type Severity Reaction Status Date / Time No Known Allergies Allergy Verified 08/21/21 20:26 Home Meds: Home Meds Esomeprazole Magnesium [Nexium 24Hr] 20 mg PO ASDIRECTED PRN 01/20/19 [History] Lisinopril 10 mg PO DAILY #30 tablet 01/20/19 [Rx] Methylphenidate HCl [Methylphenidate ER] 36 mg PO DAILY 08/21/21 [History] Rosuvastatin Calcium 10 mg PO DAILY 08/21/21 [History] Venlafaxine HCl [Venlafaxine ER] 150 mg PO DAILY 08/21/21 [History] Past Medical History HEENT History: Reports: Impaired Vision Other HEENT History: wears contacts. Cardiovascular History: Reports: High Cholesterol, Hypertension Other Cardiovascular History: takes no meds. Gastrointestinal History: Reports: GERD, PUD Psychiatric History: Reports: Anxiety, Depression Endocrine/Metabolic History: Reports: Obesity/BMI 30+ Dermatologic History: Reports: Other (See Below) Other Dermatologic History: undiagnosed chronic rash to back. - Past Surgical History HEENT Surgical History: Reports: Oral Surgery Other HEENT Surgeries/Procedures: wisdom teeth removed. GI Surgical History: Reports: Colonoscopy, EGD Social & Family History - Family History Family Medical History: No Pertinent Family History - Tobacco Use Tobacco Use Status *Q: Current Some Day Tobacco User Years of Tobacco use: 25 Packs/Tins Daily: 0.5 - Caffeine Use Caffeine Use: Reports: Coffee, Energy Drinks, Soda, Tea Other Caffeine Use: 1/day - Recreational Drug Use Recreational Drug Use: No ED ROS GENERAL - Review of Systems Review Of Systems: Comprehensive ROS is negative, except as noted in HPI. ED EXAM, GENERAL - Physical Exam Exam: See Below Exam Limited By: No Limitations General Appearance: Alert, WD/WN, No Apparent Distress Respiratory/Chest: No Respiratory Distress, Lungs Clear, Normal Breath Sounds, No Accessory Muscle Use, Other (Tenderness to palpation of midsternal and left chest.) Cardiovascular: Normal Peripheral Pulses, Regular Rate, Rhythm, No Edema, No Gallop, No JVD, No Murmur, No Rub GI/Abdominal: Normal Bowel Sounds, Soft, Non-Tender, No Organomegaly, No Distention, No Abnormal Bruit, No Mass Neurological: Alert, Oriented, CN II-XII Intact, Normal Cognition, Normal Gait, Normal Reflexes, No Motor/Sensory Deficits Psychiatric: Normal Affect, Normal Mood Skin Exam: Warm, Dry, Intact, Normal Color, No Rash #1 Interpretation EKG Date: 08/21/21 Time: 20:23 Rhythm: NSR Rate (Beats/Min): 85 [place]: Normal P-Wave: Present QRS: Normal ST-T: Normal QT: Normal Course - Vital Signs Last Recorded V/S: Last Vital Signs Temp 97.3 F 08/21/21 20:23 Pulse 89 08/21/21 20:23 Resp 18 08/21/21 20:23 BP 192/103 H 08/21/21 20:23 Pulse Ox 98 08/21/21 20:23 - Orders/Labs/Meds Labs: Laboratory Tests 08/21/21 08/21/21 08/21/21 Range/Units 20:55 20:55 20:55 WBC 9.75 H (4.23-9.07) K/mm3 RBC 4.30 L (4.63-6.08) M/mm3 Hgb 13.2 L (13.7-17.5) gm/dl Hct 40.0 L (40.1-51.0) % MCV 93.0 H (79.0-92.2) fl MCH 30.7 (25.7-32.2) pg MCHC 33.0 (32.2-35.5) g/dl RDW Std Deviation 45.4 H (35.1-43.9) fL Plt Count 523 H D (163-337) K/mm3 MPV 8.5 L (9.4-12.3) fl Neutrophils % (Manual) 58 (40-60) % Band Neutrophils % 0 (0-10) % Lymphocytes % (Manual) 36 (20-40) % Atypical Lymphs % 0 % Monocytes % (Manual) 2 (2-10) % Eosinophils % (Manual) 3 (0.8-7.0) % Basophils % (Manual) 1 (0.2-1.2) Platelet Estimate Increased Plt Morphology Comment See note RBC Morph Comment Normal PT 10.7 (9.7-12.0) SECONDS INR 0.96 APTT 30.8 (21.7-31.4) SECONDS Sodium 139 (136-145) mEq/L Potassium 4.0 (3.5-5.1) mEq/L Chloride 106 (98-107) mEq/L Carbon Dioxide 24 (21-32) mEq/L Anion Gap 13.0 (5-15) BUN 15 (7-18) mg/dL Creatinine 1.0 (0.7-1.3) mg/dL Est Cr Clr Drug Dosing 100.40 mL/min Estimated GFR (MDRD) > 60 (>60) mL/min BUN/Creatinine Ratio 15.0 (14-18) Glucose 123 H (70-99) mg/dL Calcium 8.5 (8.5-10.1) mg/dL Magnesium 2.0 (1.8-2.4) mg/dL Total Bilirubin 0.2 (0.2-1.0) mg/dL AST 15 (15-37) U/L ALT 40 (16-63) U/L Alkaline Phosphatase 95 (46-116) U/L Troponin I < 0.017 (0.00-0.056) ng/mL Total Protein 7.0 (6.4-8.2) g/dl Albumin 3.5 (3.4-5.0) g/dl Globulin 3.5 gm/dL Albumin/Globulin Ratio 1.0 (1-2) Meds: Medications Discontinued Medications Generic Name Dose Route Start Last Admin Trade Name Freq PRKarolina Reason Stop Dose Admin Lorazepam 1 mg 08/21/21 20:35 08/21/21 21:16 Lorazepam 1 Mg Tab PO 08/21/21 20:36 1 mg ONETIME ONE Administration - Re-Assessments/Exams Free Text/Narrative Re-Assessment/Exam: Patient is a 45-year-old male presenting to the emergency department with complaints of chest pain throughout the course of the day. He reports that he feels anxious and panicky and suspects he is having a panic attack. He does have a history of these. He stopped taking his venlafaxine as well as his other medications about 2 weeks ago. Exam is unremarkable. I have ordered cardiac work-up and Ativan 1 mg p.o. 08/21/21 22:24 Patient is feeling much better. Work-up is unremarkable. I will write a [employer] prescription for Ativan and recommend that he gets back on his venlafaxine. Patient verbalized understanding of this. Discharge instructions as documented. Departure - Departure Time of Disposition: 22:25 Disposition: Home, Self-Care 01 Condition: Good Clinical Impression: Anxiety, Atypical chest pain Instructions: Managing Anxiety, Adult Referrals: PCP,None [Ordering Only Provider] - Forms: ED Department Discharge Additional Instructions: You were seen in the emergency department today for chest pain and anxiety. Cardiac work-up was completed and found to be normal. You are not having a heart attack. While in the ER, you received a dose of Ativan for anxiety which did improve your symptoms. You been provided a short prescription of Ativan. Use us as needed for return of panic attacks. Recommend that you get back on your venlafaxine to treat your anxiety. Return to ER for any new or worsening symptoms of concern. Sepsis Event Note (ED) - Evaluation Sepsis Screening Result: No Definite Risk
--- NOTE | 2021-08-22 07:55 | CR ---
Chest: 2 views of the chest were obtained. Comparison: Prior chest x-ray of 01/20/19. Heart size and mediastinum are normal. Lungs are clear with no acute parenchymal change. Bony structures appear within normal limits for the patient's age. Impression: 1. Nothing acute is seen on 2 view chest x-ray. Diagnostic code #1
== END 2021-08-21 22:40 | disposition home or self-care (01) ==
LOC: JD.ED 20:14
DX: R07.2 Precordial pain (principal); F41.9 Anxiety disorder, unspecified; E78.00 Pure hypercholesterolemia, unspecified; I10 Essential (primary) hypertension; E66.9 Obesity, unspecified; Z72.0 Tobacco use; Z68.31 Body mass index [BMI] 31.0-31.9, adult
CPT/HCPCS: 36415; 71046; 80053; 83735; 84484; 85007; 85027; 85610; 85730; 93005; 99285; A9270

== ENCOUNTER 2023-08-20 18:37 | Emergency (ER) | payer BC ==
[2023-08-20] MEDS ORDERED: Sodium Chloride 0.9% 10 ML Syringe FLUSH PRN (18:54)
[2023-08-20 19:28] LABS: BASOPHILS ABSOLUTE AUTO 0.1 K/mm3 (0.0-0.2); BASOPHILS PERCENT AUTO 0.8 % (0.0-1.0); EOSINOPHILS ABSOLUTE AUTO 0.2 K/mm3 (0.0-0.4); EOSINOPHILS PERCENT AUTO 2.7 % (0.0-6.0); HEMATOCRIT 39.4 % (42.0-52.0); HEMOGLOBIN 13.4 gm/dl (14.0-18.0); IMMATURE GRAN ABSOLUTE AUTO 0.03 K/mm3 (0.00-0.05); IMMATURE GRAN PERCENT AUTO 0.3 % (0.0-0.4); LYMPHOCYTES ABSOLUTE AUTO 3.7 K/mm3 (1.0-4.8); LYMPHOCYTES PERCENT AUTO 41.7 % (24.0-44.0); MEAN CORPUSCULAR HEMOGLOBIN 30.8 pg (28.0-32.0); MEAN CORPUSCULAR VOLUME 90.6 fl (83.0-99.0); MEAN PLATELET VOLUME 8.7 fl (9.4-12.4); MONOCYTES ABSOLUTE AUTO 0.4 K/mm3 (0.0-0.8); MONOCYTES PERCENT AUTO 4.6 % (0.0-8.0); NEUTROPHILS ABSOLUTE AUTO 4.5 K/mm3 (1.8-7.7); NEUTROPHILS PERCENT AUTO 49.9 % (41.0-71.0); PLATELET COUNT,PLT 378 K/mm3 (150-400); RED BLOOD CELL COUNT 4.35 M/mm3 (4.52-5.90); WHITE BLOOD CELL COUNT,WBC 8.97 K/mm3 (3.9-11.3)
[2023-08-20 19:47] LABS: INR 0.97; PROTHROMBIN TIME 10.4 SECONDS (9.7-12.0)
[2023-08-20 19:53] LABS: A/G RATIO 1.1 (1-2); ALBUMIN 3.6 g/dl (3.4-5.0); ANION GAP 16.3 (5-15); BILIRUBIN TOTAL 0.2 mg/dL (0.2-1.0); BUN/CREATININE RATIO 9.1 (14-18); CALCIUM 8.9 mg/dL (8.5-10.1); CREATININE 1.1 mg/dL (0.7-1.3); EST CRCL DRUG DOSING (CG) 89.37 mL/min; MAGNESIUM 1.6 mg/dL (1.8-2.4); POTASSIUM,K 3.3 mEq/L (3.5-5.1); PROTEIN TOTAL,TP 6.8 g/dl (6.4-8.2)
[2023-08-20 20:02] LABS: D-DIMER QUANTITATIVE < 0.19 mg/L (0.19-0.50)
[2023-08-20] MEDS ORDERED: Magnesium Oxide 400 MG Tab PO ONE (20:55)
== END 2023-08-20 21:07 | disposition home or self-care (01) ==
LOC: JD.ED 18:37
DX: R07.89 Other chest pain (principal); E78.00 Pure hypercholesterolemia, unspecified; I10 Essential (primary) hypertension; Z68.35 Body mass index [BMI] 35.0-35.9, adult; Z79.899 Other long term (current) drug therapy
CPT/HCPCS: 36415; 71045; 80053; 83735; 84484; 85025; 85379; 85610; 93005; 99285; A9270; J3490; 93010; 99283

== ENCOUNTER 2024-02-11 20:16 | Emergency (ER) | payer BC ==
[2024-02-11] MEDS ORDERED: Sodium Chloride 0.9% 10 ML Syringe FLUSH PRN (20:25)
[2024-02-11 20:55] LABS: BASOPHILS ABSOLUTE AUTO 0.1 K/mm3 (0.0-0.2); BASOPHILS PERCENT AUTO 0.9 % (0.0-1.0); EOSINOPHILS ABSOLUTE AUTO 0.4 K/mm3 (0.0-0.4); EOSINOPHILS PERCENT AUTO 4.1 % (0.0-6.0); HEMOGLOBIN 13.9 gm/dl (14.0-18.0); IMMATURE GRAN ABSOLUTE AUTO 0.01 K/mm3 (0.00-0.05); IMMATURE GRAN PERCENT AUTO 0.1 % (0.0-0.4); LYMPHOCYTES ABSOLUTE AUTO 3.7 K/mm3 (1.0-4.8); LYMPHOCYTES PERCENT AUTO 43.4 % (24.0-44.0); MEAN CORPUSCULAR HEMOGLOBIN 29.9 pg (28.0-32.0); MEAN CORPUSCULAR HGB CONC 33.9 g/dl (32.0-36.0); MEAN CORPUSCULAR VOLUME 88.2 fl (83.0-99.0); MEAN PLATELET VOLUME 8.8 fl (9.4-12.4); MONOCYTES ABSOLUTE AUTO 0.5 K/mm3 (0.0-0.8); NEUTROPHILS ABSOLUTE AUTO 3.9 K/mm3 (1.8-7.7); NEUTROPHILS PERCENT AUTO 45.5 % (41.0-71.0); PLATELET COUNT,PLT 357 K/mm3 (150-400); RED BLOOD CELL COUNT 4.65 M/mm3 (4.52-5.90)
[2024-02-11 21:33] LABS: A/G RATIO 1.1 (1-2); ALANINE AMINOTRANSFERASE,ALT 52 U/L (16-63); ALBUMIN 3.8 g/dl (3.4-5.0); ALKALINE PHOSPHATASE 92 U/L (46-116); ANION GAP 12.9 (5-15); ASPARTATE AMNIOTRANSFERASE,AST 25 U/L (15-37); BILIRUBIN TOTAL 0.5 mg/dL (0.2-1.0); BLOOD UREA NITROGEN,BUN 11 mg/dL (7-18); CALCIUM 8.9 mg/dL (8.5-10.1); CARBON DIOXIDE,CO2 24 mEq/L (21-32); CHLORIDE,CL 105 mEq/L (98-107); EST CRCL DRUG DOSING (CG) 97.26 mL/min; ESTIMATED GFR 93 mL/min (>60); GLUCOSE RANDOM 101 mg/dL (70-99); POTASSIUM,K 3.9 mEq/L (3.5-5.1); PROTEIN TOTAL,TP 7.2 g/dl (6.4-8.2); SODIUM,NA 138 mEq/L (136-145)
[2024-02-11 21:49] LABS: C-REACTIVE PROTEIN < 0.05 mg/dL (<0.30)
== END 2024-02-11 22:08 | disposition home or self-care (01) ==
LOC: JD.ED 20:16
DX: R07.89 Other chest pain (principal); E78.00 Pure hypercholesterolemia, unspecified; I10 Essential (primary) hypertension; K21.9 Gastro-esophageal reflux disease without esophagitis; E66.9 Obesity, unspecified; Z79.899 Other long term (current) drug therapy; Z68.36 Body mass index [BMI] 36.0-36.9, adult
CPT/HCPCS: 36415; 71046; 71046-26; 80053; 84484; 85025; 85379; 86140; 93005; 93010; 99283; 99285